=== PATIENT | male | born 1975 | race Caucasian/White ===

== ENCOUNTER 2018-01-08 06:47 | Emergency (ER) | payer BC ==
[~2018-01-08] VITALS: Ht 193 cm; Wt 138.0 kg
[2018-01-08 06:49] VITALS: BP 166/98; PULSE 109; RESP 16; TEMP 99.6; O2SAT 97
--- NOTE | 2018-01-08 07:26 | PD ---
HPI Chief Complaint: cellulitis Time Seen by Provider: 07:11 Travel History International Travel<30 days: No Contact w/Intl Traveler<30days: No Traveled to known affect area: No History of Present Illness HPI the patient is a 42-year-old male who presents emergency department for redness and possible cellulitis to left lower extremity. The patient states he had a traumatic injury to the left lower extremity 9 years ago. He then developed a blood infection with cellulitis in the left lower extremity approximately 5 years ago. He is currently in town from [place], [place], for the races. Yesterday the patient noted some redness to left lower extremity , states his skin is warm. He denies any acute injury to left lower extremity and denies any known breakage in the skin of the left lower extremity. The patient does have a history of diabetes. He does note chills last night with subjective fevers. He denies any headache, nausea, vomiting, abdominal pain, groin pain, or bodyaches. Symptoms are moderate. There are no current alleviating or exacerbating factors. [facility] Past Medical History Narrative Medical Diabetes, hypertension, hyperlipidemia Past Surgical History Narrative Surgical Right ankle surgery Social History Tobacco Use: Yes (Vapes) Allergies-Medications (Allergen,Severity, Reaction): Coded Allergies: No Known Allergies (Unverified , 01/08/18) Reported Meds & Prescriptions Reported Meds & Active Scripts Active Reported Lovastatin 40 Mg Tab 40 Mg PO DAILY Janumet (Sitagliptin-Metformin) 50-1,000 Mg Tab 1 Tab PO BID Lisinopril 10 Mg Tab 10 Mg PO DAILY Review of Systems Except as stated in HPI: all other systems reviewed are Neg General / Constitutional: Positive: Fever (subjective), Chills HENT: No: Headaches Cardiovascular: No: Chest Pain or Discomfort Respiratory: No: Shortness of Breath Gastrointestinal: No: Nausea, Vomiting, Abdominal Pain Musculoskeletal: Positive: Pain Skin: Positive Other (as noted in the history of present illness) Physical Exam Narrative GENERAL: Awake, alert, very pleasant 42-year-old male who appears his stated age and is in no acute respiratory distress. SKIN: Focused skin assessment warm/dry. HEAD: Atraumatic. Normocephalic. EYES: No injection or drainage. ENT: No nasal bleeding or discharge. Mucous membranes pink and moist. NECK: Trachea midline. No JVD. CARDIOVASCULAR: Regular, tachycardic with a heart rate of 100. RESPIRATORY: No accessory muscle use. Clear to auscultation. Breath sounds equal bilaterally. GASTROINTESTINAL: Abdomen soft, non-tender, nondistended. Hepatic and splenic margins not palpable. MUSCULOSKELETAL: Left lower extremity reveals superficial varicosities. There is erythema circumferential fashion the left lower extremity, noted calor. Positive dorsalis pedal pulses. No significant left inguinal lymphadenopathy on exam. NEUROLOGICAL: Awake and alert. No obvious cranial nerve deficits. Motor grossly within normal limits. Normal speech. PSYCHIATRIC: Appropriate mood and affect; insight and judgment normal. Data Data Last Documented VS Vital Signs Date Time Temp Pulse Resp B/P (MAP) Pulse Ox O2 Delivery O2 Flow Rate FiO2 01/08/18 07:30 99.1 01/08/18 06:49 109 16 166/98 (120) 97 Orders Orders Complete Blood Count With Diff (01/08/18 07:22) Comprehensive Metabolic Panel (01/08/18 07:22) Blood Culture (01/08/18 07:22) Lactic Acid (01/08/18 07:22) Sodium Chlor 0.9% 1000 Ml Inj (Ns 1000 M (01/08/18 07:30) Clindamycin 600 Mg/Ns Premix (Cleocin 60 (01/08/18 07:30) Ketorolac Inj (Toradol Inj) (01/08/18 07:45) Labs Laboratory Tests Test 01/08/18 07:40 White Blood Count 8.1 TH/MM3 Red Blood Count 4.83 MIL/MM3 Hemoglobin 13.7 GM/DL Hematocrit 39.5 % Mean Corpuscular Volume 81.8 FL Mean Corpuscular Hemoglobin 28.4 PG Mean Corpuscular Hemoglobin Concent 34.8 % Red Cell Distribution Width 14.2 % Platelet Count 209 TH/MM3 Mean Platelet Volume 6.8 FL Neutrophils (%) (Auto) 80.9 % Lymphocytes (%) (Auto) 8.6 % Monocytes (%) (Auto) 9.8 % Eosinophils (%) (Auto) 0.2 % Basophils (%) (Auto) 0.5 % Neutrophils # (Auto) 6.5 TH/MM3 Lymphocytes # (Auto) 0.7 TH/MM3 Monocytes # (Auto) 0.8 TH/MM3 Eosinophils # (Auto) 0.0 TH/MM3 Basophils # (Auto) 0.0 TH/MM3 CBC Comment DIFF FINAL Differential Comment Blood Urea Nitrogen 8 MG/DL Creatinine 0.73 MG/DL Random Glucose 160 MG/DL Total Protein 7.6 GM/DL Albumin 3.2 GM/DL Calcium Level 8.1 MG/DL Alkaline Phosphatase 116 U/L Aspartate Amino Transf (AST/SGOT) 20 U/L Alanine Aminotransferase (ALT/SGPT) 30 U/L Total Bilirubin 0.9 MG/DL Sodium Level 133 MEQ/L Potassium Level 3.6 MEQ/L Chloride Level 101 MEQ/L Carbon Dioxide Level 24.1 MEQ/L Anion Gap 8 MEQ/L Estimat Glomerular Filtration Rate 117 ML/MIN Lactic Acid Level 1.3 mmol/L [facility] Medical Decision Making Medical Screen Exam Complete: Yes Emergency Medical Condition: Yes Medical Record Reviewed: Yes Interpretation(s) Laboratory Tests Test 01/08/18 07:40 White Blood Count 8.1 TH/MM3 Red Blood Count 4.83 MIL/MM3 Hemoglobin 13.7 GM/DL Hematocrit 39.5 % Mean Corpuscular Volume 81.8 FL Mean Corpuscular Hemoglobin 28.4 PG Mean Corpuscular Hemoglobin Concent 34.8 % Red Cell Distribution Width 14.2 % Platelet Count 209 TH/MM3 Mean Platelet Volume 6.8 FL Neutrophils (%) (Auto) 80.9 % Lymphocytes (%) (Auto) 8.6 % Monocytes (%) (Auto) 9.8 % Eosinophils (%) (Auto) 0.2 % Basophils (%) (Auto) 0.5 % Neutrophils # (Auto) 6.5 TH/MM3 Lymphocytes # (Auto) 0.7 TH/MM3 Monocytes # (Auto) 0.8 TH/MM3 Eosinophils # (Auto) 0.0 TH/MM3 Basophils # (Auto) 0.0 TH/MM3 CBC Comment DIFF FINAL Differential Comment Blood Urea Nitrogen 8 MG/DL Creatinine 0.73 MG/DL Random Glucose 160 MG/DL Total Protein 7.6 GM/DL Albumin 3.2 GM/DL Calcium Level 8.1 MG/DL Alkaline Phosphatase 116 U/L Aspartate Amino Transf (AST/SGOT) 20 U/L Alanine Aminotransferase (ALT/SGPT) 30 U/L Total Bilirubin 0.9 MG/DL Sodium Level 133 MEQ/L Potassium Level 3.6 MEQ/L Chloride Level 101 MEQ/L Carbon Dioxide Level 24.1 MEQ/L Anion Gap 8 MEQ/L Estimat Glomerular Filtration Rate 117 ML/MIN Lactic Acid Level 1.3 mmol/L Differential Diagnosis Differential diagnosis includes cellulitis, thrombophlebitis, DVT, sepsis. Narrative Course IV was established, labs are drawn and sent, and the patient was placed on cardiac telemetry monitoring and continuous pulse oximetry monitoring. CBC, lactic acid, blood culture were sent to lab. The patient was administered normal saline and clindamycin 600 mg intravenously. The erythema left lower extremity was marked with a surgical marking pen. White count was 8.1, lactic acid is 1.3. Patient will be treated on an outpatient basis for cellulitis. He is advised to follow-up with his primary physician and return if symptoms worsen or progress. Diagnosis Primary Impression: Cellulitis of left leg Patient Instructions: General Instructions Additional Instructions: Medication as directed. Please provide the patient a copy of his labs at discharge. Follow-up with her primary physician. Return if symptoms worsen or progress. Alternate Tylenol and Motrin for pain and fever. Med/Other Pt SpecificInfo: Prescription(s) given Scripts Clindamycin (Cleocin) 150 Mg Cap 150 MG PO Q6H for Infection for 10 Days, #40 CAP 0 Refills Prov: Ceferino Serna MD 01/08/18 Disposition: DISCHARGE HOME Condition: Stable Ceferino Serna MD Jan 08, 2018 07:26
[2018-01-08 07:30] VITALS: TEMP 99.1
[2018-01-08] MEDS ORDERED: SODIUM CHLOR 0.9% 1000 ML INJ 1,000 ML IV ONE (07:30)
[2018-01-08] MEDS ORDERED: CLINDAMYCIN 600 MG/NS PREMIX 50 ML IV ONE (07:30)
[2018-01-08] MEDS ORDERED: KETOROLAC TROMETHAMINE 30 MG/ML (IVP) VIAL IV PUSH ONE (07:45)
[2018-01-08 07:56] LABS: AUTOMATED NEUTROPHIL # 6.5 TH/MM3 (1.8-7.7); BASOPHIL % 0.5 % (0.0-2.0); EOSINOPHIL % 0.2 % (0.0-4.0); HEMATOCRIT 39.5 % (39.0-51.0); HEMOGLOBIN 13.7 GM/DL (13.0-17.0); LYMPH % 8.6 % (9.0-44.0); LYMPHOCYTE # 0.7 TH/MM3 (1.0-4.8); MEAN CELL VOLUME 81.8 FL (80.0-100.0); MEAN CORPUSCULAR HEMOGLOBIN 28.4 PG (27.0-34.0); MEAN CORPUSCULAR HGB CONC 34.8 % (32.0-36.0); MEAN PLATELET VOLUME 6.8 FL (7.0-11.0); MONO % 9.8 % (0.0-8.0); MONOCYTE # 0.8 TH/MM3 (0-0.9); NEUT % 80.9 % (16.0-70.0); PLATELET COUNT 209 TH/MM3 (150-450); RED BLOOD COUNT 4.83 MIL/MM3 (4.50-5.90); RED CELL DISTRIBUTION WIDTH 14.2 % (11.6-17.2); WHITE BLOOD COUNT 8.1 TH/MM3 (4.0-11.0)
[2018-01-08] MEDS ORDERED: LISI10TA3 PO (08:00)
[2018-01-08] MEDS ORDERED: JANU50TA8 PO (08:00)
[2018-01-08] MEDS ORDERED: LOVA40TA PO (08:00)
[2018-01-08 08:18] LABS: ALBUMIN 3.2 GM/DL (3.4-5.0); ALT (GPT) 30 U/L (12-78); AST (GOT) 20 U/L (15-37); BICARBONATE 24.1 MEQ/L (21.0-32.0); BLOOD UREA NITROGEN 8 MG/DL (7-18); CALCIUM 8.1 MG/DL (8.5-10.1); CHLORIDE 101 MEQ/L (98-107); CREATININE 0.73 MG/DL (0.60-1.30); GLOMERULAR FILTRATION RATE 117 ML/MIN (>89); GLUCOSE,RANDOM 160 MG/DL (74-106); SODIUM (NA) 133 MEQ/L (136-145)
[2018-01-08 08:21] LABS: ALKALINE PHOSPHATASE 116 U/L (45-117); TOTAL BILIRUBIN ADULT 0.9 MG/DL (0.2-1.0); TOTAL PROTEIN 7.6 GM/DL (6.4-8.2)
[2018-01-08] MEDS ORDERED: CLIN150 PO (08:51)
[2018-01-08 08:56] VITALS: RESP 16
== END 2018-01-08 09:16 | disposition home or self-care (01) ==
LOC: NEPE 06:47
DX: L03.116 Cellulitis of left lower limb (principal); E11.9 Type 2 diabetes mellitus without complications; E78.5 Hyperlipidemia, unspecified; I10 Essential (primary) hypertension; F17.290 Nicotine dependence, other tobacco product, uncomplicated; Z79.899 Other long term (current) drug therapy
CPT/HCPCS: 80053; 83605; 85025; 87040; 96365; 96375; 99283; J1885; J7030